=== PATIENT | female | born 1985 | race African-American/Black ===

== ENCOUNTER 2016-05-31 23:52 | Emergency (ER) | payer OTHER ==
[2016-06-01 00:44] VITALS: BMI 42.3
[2016-06-01] MEDS ORDERED: SODIUM CHLORIDE 1,000 ML IV STA (00:56)
[2016-06-01] MEDS ORDERED: FAMOTIDINE 20 MG/50 ML IVPB 50 ML IVPB ONE ×2 (00:56→03:29)
[2016-06-01] MEDS ORDERED: ONDANSETRON 4 MG/2 ML VIAL IVPB ONE (00:56)
[2016-06-01] MEDS ORDERED: morphine CARPU-JECT 4 MG/1 ML DISP.SYRIN IVPUSH ONE (00:56)
--- NOTE | 2016-06-01 01:24 | PDOC ---
History of Present Illness - General History Source: Patient Exam Limitations: No Limitations <Fidel Orozco - Last Filed: 06/01/16 01:51> - General History Source: Patient Exam Limitations: No Limitations - History of Present Illness Initial Comments: 06/01/16 01:57 The patient is a 31 year old female, with no significant past medical history, who presents to the emergency department with two main complaints. The patient reports that yesterday morning, she fell, landed on her right buttocks, twisting her left ankle in the process. The patient reports taking Ibuprofen for pain. The patient denies any extremity weakness/numbness/tingling however she does reports pain with ambulation. The patient additionally reports nausea, vomiting and vague diffuse abdominal pain since approximately 7PM yesterday evening. The patient denies fever, chills diarrhea or any recent illnesses. LMP : currently. Allergies: None reported. Past Surgical History: None reported. Social History: Non smoker. Denies alcohol or drug use. PCP: Dr. Thomson <Marya Albrecht - Last Filed: 06/01/16 02:00> <Calli Arellano - Last Filed: 06/03/16 05:40> - General Chief Complaint: Pain Stated Complaint: NAUSEA/VOMITING Time Seen by Provider: 06/01/16 00:41 Past History - Psycho/Social/Smoking Cessation Hx Anxiety: No Suicidal Ideation: No Smoking Status: No Smoking History: Never smoked Have you smoked in the past 12 months: No Number of Cigarettes Smoked Daily: 0 Information on smoking cessation initiated: No Hx Alcohol Use: No Drug/Substance Use Hx: No <Fidel Orozco - Last Filed: 06/01/16 01:51> <Marya Albrecht - Last Filed: 06/01/16 02:00> <Calli Arellano - Last Filed: 06/03/16 05:40> - Past Medical History Allergies/Adverse Reactions: Allergies Allergy/AdvReac Type Severity Reaction Status Date / Time No Known Allergies Allergy Verified 06/01/16 00:42 Home Medications: Ambulatory Orders Ondansetron [Zofran -] 4 mg PO TID PRN #21 tablet 06/01/16 Review of Systems - Review of Systems Able to Perform ROS?: Yes Comments:: 06/01/16 01:31 GENERAL/CONSTITUTIONAL: No fever or chills. No weakness. HEAD, EYES, EARS, NOSE AND THROAT: No change in vision. No ear pain or discharge. No sore throat. CARDIOVASCULAR: No chest pain or shortness of breath. RESPIRATORY: No cough, wheezing, or hemoptysis. GASTROINTESTINAL: +Nausea, vomiting, abdominal pain. No diarrhea or constipation. GENITOURINARY: No dysuria, frequency, or change in urination. MUSCULOSKELETAL: +Left ankle pain, right buttocks pain. No muscle swelling or pain. No neck or back pain. SKIN: No rash. NEUROLOGIC: No headache, vertigo, loss of consciousness, or change in strength/ sensation. ENDOCRINE: No increased thirst. No abnormal weight change. HEMATOLOGIC/LYMPHATIC: No anemia, easy bleeding, or history of blood clots. ALLERGIC/IMMUNOLOGIC: No hives or skin allergy. <Marya Albrecht - Last Filed: 06/01/16 02:00> *Physical Exam - Vital Signs Last Vital Signs Temp Pulse Resp BP Pulse Ox 98.9 F 125 H 22 139/79 99 06/01/16 00:42 06/01/16 00:42 06/01/16 00:42 06/01/16 00:42 06/01/16 00:42 <Fidel Orozco - Last Filed: 06/01/16 01:51> - Vital Signs Last Vital Signs Temp Pulse Resp BP Pulse Ox 98.9 F 125 H 22 139/79 99 06/01/16 00:42 06/01/16 00:42 06/01/16 00:42 06/01/16 00:42 06/01/16 00:42 - Physical Exam Comments: 06/01/16 01:54 GENERAL: Obese. Patient is awake, alert and in no acute distress. Speech is clear and appropriate. HEAD: Atraumatic and nontender. HEENT: Pupils are equal round and reactive to light, extraocular movements are intact. The tympanic membranes are clear, no hemotympanum. No facial deformity. No facial bone tenderness or step-off. No nasal septal hematoma. The oropharynx is clear. NECK: The trachea is midline, there is no stridor. There is no midline cervical spine tenderness, full range of motion of neck. CHEST: Non-tender, no ecchymosis or abrasions. Equal chest wall expansion bilaterally. No flail segments. Lungs are clear to auscultation bilaterally. CARDIOVASCULAR: S1-S2, regular rate and rhythm. No murmurs or rubs. ABDOMEN: Diffuse abdominal tenderness. Soft, nondistended. Bowel sounds are normoactive. There is no abdominal or flank ecchymosis. BACK/PELVIS: Tenderness to the right buttocks. There is no midline thoracic or lumbosacral spine tenderness or step-off. Pelvis is stable and nontender. EXTREMITIES: Left ankle, 2+ DP pulse. No swelling or ecchymoses. No tenderness to navicular bone, no tenderness to the 5th metatarsal. Tenderness along lateral malleolus There is no extremity deformity or joint swelling. 2+ distal pulses throughout. NEURO: Alert and oriented x3. Cranial nerves II through XII are intact. 5 out of 5 motor strength x4 extremities. No gross sensory deficits. Finger-nose- finger is intact. No pronator drift. Gait is stable. SKIN: No abrasions, hematomas, lacerations. PSYCH: Affect is appropriate. <WindsorMarya goodson - Last Filed: 06/01/16 02:00> - Vital Signs Last Vital Signs Temp Pulse Resp BP Pulse Ox 98.9 F 125 H 22 139/79 99 06/01/16 00:42 06/01/16 00:42 06/01/16 00:42 06/01/16 00:42 06/01/16 00:42 <Calli Arellano - Last Filed: 06/03/16 05:40> ED Treatment Course - RADIOLOGY Radiology Studies Ordered: Category Date Time Status ABDOMEN & PELVIS CT WITH CONTR [CT] Stat CT Scan 06/01/16 01:03 Ordered ANKLE-LEFT [RAD] Stat Radiology 06/01/16 01:02 Ordered TRANSVAGINAL ULTRASOUND US [US] Stat Ultrasound 06/01/16 00:56 Ordered <Fidel Orozco - Last Filed: 06/01/16 01:51> - LABORATORY CBC & Chemistry Diagram: 06/01/16 03:25 06/01/16 03:25 <Calli Arellano - Last Filed: 06/03/16 05:40> Medical Decision Making - Medical Decision Making 06/01/16 01:16 A portion of this note was documented by scribe services under my direction. I have reviewed the details of the note, within reason, and agree with the documentation with the following case summary and management plan written by me. Patient treated in the ED. Nursing notes are reviewed and incorporated into the medical decision-making. Vital signs reviewed. Peripheral IV access obtained by the nurse, laboratory studies are drawn and sent, reviewed and interpreted by myself. Vital Signs Temp Pulse Resp BP Pulse Ox 98.9 F 125 H 22 139/79 99 06/01/16 00:42 06/01/16 00:42 06/01/16 00:42 06/01/16 00:42 06/01/16 00:42 31 year old obese female with no past medical history presents with two complaints. This morning, the patient had twisted her left ankle. Denies numbness, weakness. Reports pain on ambulation. Stated when she fell, landed on right buttocks, and now has right buttocks pain. Will obtain a left ankle xray to r/o fracture. If negative, likely sprain. Pt also complains of generalized abdominal pain that started at 7 pm. She is also currently on her menstrual period. Has had nausea and vomiting and poor appetite. Denies fevers. Will need to r/o appendicitis. However, given her obesity and ?hirsuit, will need to r/o ovarian cyst rupture. Transvaginal ultrasound. Obtain labs, CT scan of abdomen and pelvis, transvaginal ultrasound , and reassess. 06/01/16 01:51 Case signed out to ED attending Dr. Arellano for further management and disposition. <Fidel Orozco - Last Filed: 06/01/16 01:51> - Medical Decision Making 06/01/16 03:08 Patient Name: Padmini Medina THIS IS A PRELIMINARY REPORT FROM [facility]: 27 EXAM DATE AND TIME: 2016-06-01 01:02:52.0 EXAM: ULTRASOUND PELVIS, COMPLETE AND DUPLEX SCAN PELVIS, COMPLETE No ovarian torsion. arterial and venous waveforms right ovary and arterial waveforms on the left. No free fluid. Normal uterus. Endometrial stripe complex 9 mm thick. Unremarkable visualized portion of bladder. THIS DOCUMENT HAS BEEN ELECTRONICALLY SIGNED 06/01/16 06:56 Pt comes with nausea and vomiting as well as fall and twisting ankle. She was signed out to me. Labs are normal. UA normal. Sono had been ordered to r/o torsion; she has no torsion. XR ankle had been ordered and is pending CT scan abdomen and pelvis had been ordered and is pending I will sign out patient to the day ER doctor who will follow ankle XR and CT scan results and disposition the patient. <Calli Arellano - Last Filed: 06/03/16 05:40> *DC/Admit/Observation/Transfer <Fidel Orozco - Last Filed: 06/01/16 01:51> - Attestations Scribe Attestion: 06/01/16 01:25 Documentation prepared by Marya Albrecht, acting as medical insurance biller for Fidel Orozco MD. <Marya Albrecht - Last Filed: 06/01/16 02:00> <Calli Arellano - Last Filed: 06/03/16 05:40> Diagnosis at time of Disposition: Nausea and vomiting, Ankle sprain - Discharge Dispostion Disposition: HOME Condition at time of disposition: Stable - Prescriptions Prescriptions: Ondansetron [Zofran -] 4 mg PO TID PRN #21 tablet PRN Reason: Nausea And/Or Vomiting - Referrals Referrals: Ramírez Thomson [Primary Care Provider] - - Patient Instructions Printed Discharge Instructions: DI for Ankle Sprain, DI for Vomiting -- Adult
[2016-06-01] MEDS ORDERED: morphine CARPU-JECT 4 MG/1 ML DISP.SYRIN ONE (03:28)
[2016-06-01] MEDS ORDERED: ONDANSETRON 4 MG/2 ML VIAL ONE (03:28)
[2016-06-01 03:38] LABS: BASOPHIL 0.4 % (0-2.0); EOSINOPHIL 0.3 % (0-4.5); MCH 26.8 pg (25.7-33.7); MCHC 33.1 g/dl (32.0-36.0); MEAN CELL VOLUME 81.1 fl (80-96); MEAN PLT VOLUME 8.1 fl (7.5-11.1); NEUTROPHILS 91.1 % (42.8-82.8); PLATELET COUNT 303 K/MM3 (134-434); RDW 14.4 % (11.6-15.6)
[2016-06-01 04:01] LABS: ALBUMIN 3.7 g/dl (3.4-5.0); ANION GAP 12 (8-16); CALCIUM 8.5 mg/dL (8.5-10.1); CO2 26 mmol/L (21-32); CREATININE 0.8 mg/dL (0.55-1.02); GLUCOSE,RANDOM 98 mg/dL (74-106); SGOT/AST 15 U/L (15-37); SGPT/ALT 30 U/L (12-78)
[2016-06-01 04:03] LABS: ALK PHOS 55 U/L (45-117); BILIRUBIN,TOTAL 0.5 mg/dL (0.2-1.0); TOT PROT 7.3 g/dl (6.4-8.2)
[2016-06-01 06:21] LABS: URINE APPEARANCE CLEAR; URINE BILIRUBIN NEGATIVE (NEGATIVE); URINE COLOR LTYELLOW; URINE GLUCOSE (UA) NEGATIVE (NEGATIVE); URINE KETONE NEGATIVE (NEGATIVE); URINE LEUK ESTERASE NEGATIVE (NEGATIVE); URINE NITRITE NEGATIVE (NEGATIVE); URINE UROBILINOGEN NEGATIVE E.U./dl (0.2-1.0)
[2016-06-01 06:33] LABS: URINE BLOOD 1+ (NEGATIVE); URINE PROTEIN 1+ (NEGATIVE)
[2016-06-01 06:40] LABS: URINE MUCUS RARE; URINE RBC 1 /hpf (0-3); URINE WBC 1 /hpf (3-5)
[2016-06-01] MEDS ORDERED: SODIUM CHLORIDE 0.9% 500 ML INFUS.BAG IV ONE (07:00)
--- NOTE | 2016-06-01 07:27 | PDOC ---
[id number] 148/76 100 06/01/16 06:33 06/01/16 06:33 06/01/16 06:33 06/01/16 06:33 06/01/16 06:33 ED Treatment Course - LABORATORY CBC & Chemistry Diagram: 06/01/16 03:25 06/01/16 03:25 - ADDITIONAL ORDERS Additional order review: Laboratory Results 06/01/16 06/01/16 03:25 03:25 Sodium 142 Potassium 3.9 Chloride 104 Carbon Dioxide 26 Anion Gap 12 BUN 9 Creatinine 0.8 Creat Clearance w eGFR > 60 Random Glucose 98 Calcium 8.5 Total Bilirubin 0.5 AST 15 ALT 30 Alkaline Phosphatase 55 Total Protein 7.3 Albumin 3.7 Lipase 113 Serum , Qual Negative Urine Color Ltyellow Urine Appearance Clear Urine pH 9.0 H Ur Specific [place] 1.023 Urine Protein 1+ H Urine Glucose (UA) Negative Urine Ketones Negative Urine Blood 1+ H Urine Nitrite Negative Urine Bilirubin Negative Urine Urobilinogen Negative Ur Leukocyte Esterase Negative Urine RBC 1 Urine WBC 1 Ur Epithelial Cells Rare Urine Mucus Rare 06/01/16 03:25 RBC 4.75 MCV 81.1 MCHC 33.1 RDW 14.4 MPV 8.1 Neutrophils % 91.1 H Lymphocytes % 4.8 L Monocytes % 3.4 L Eosinophils % 0.3 Basophils % 0.4 - Medications Given in the ED: ED Medications Discontinued Medications Generic Name Dose Route Start Last Admin Trade Name Freq PRN Reason Stop Dose Admin Famotidine/Sodium Chloride 50 mls @ 100 mls/hr 06/01/16 00:56 06/01/16 03:41 Pepcid 20 Mg Premixed Ivpb - IVPB 06/01/16 01:25 100 mls/hr ONCE ONE Administration Sodium Chloride 1,000 mls @ 1,000 mls/hr 06/01/16 00:56 06/01/16 03:41 Normal Saline - IV 06/01/16 01:55 1,000 mls/hr ASDIR STA Administration Morphine Sulfate 4 mg 06/01/16 00:56 06/01/16 03:41 Morphine Injection - IVPUSH 06/01/16 00:57 4 mg ONCE ONE Administration Ondansetron HCl 4 mg 06/01/16 00:56 06/01/16 03:42 Zofran Injection IVPB 06/01/16 00:57 4 mg ONCE ONE Administration Medical Decision Making - Medical Decision Making 06/01/16 07:27 Pt endorsed to me by Dr. Arellano. Awaiting ankle XR, CT a/p. 06/01/16 10:38 Abd reassessed- nontender, no signs of acute abdomen. Pt given a PO challenge. *DC/Admit/Observation/Transfer Diagnosis at time of Disposition: Nausea and vomiting Qualifiers: Vomiting type: unspecified Vomiting Intractability: non-intractable Qualified Code(s): R11.2 - Nausea with vomiting, unspecified Ankle sprain Qualifiers: Encounter type: initial encounter Involved ligament of ankle: unspecified ligament Laterality: left Qualified Code(s): S93.402A - Sprain of unspecified ligament of left ankle, initial encounter - Discharge Dispostion Disposition: HOME Condition at time of disposition: Stable Admit: No - Prescriptions Prescriptions: Ondansetron [Zofran -] 4 mg PO TID PRN #21 tablet PRN Reason: Nausea And/Or Vomiting - Referrals Referrals: Ramírez Thomson [Primary Care Provider] - - Patient Instructions Printed Discharge Instructions: DI for Ankle Sprain, DI for Vomiting -- Adult - Post Discharge Activity
[2016-06-01 11:06] VITALS: BP 110/66; PULSE 89; TEMP 97.6
== END 2016-06-01 11:06 | disposition home or self-care (01) ==
LOC: JER 23:52
PROC: 3E033GC Introduction of Other Therapeutic Substance into Peripheral Vein, Percutaneous Approach (ICD-10-PCS; principal; 2016-05-31)
PROC: 3E033NZ Introduction of Analgesics, Hypnotics, Sedatives into Peripheral Vein, Percutaneous Approach (ICD-10-PCS; 2016-05-31)
PROC: 3E033GC Introduction of Other Therapeutic Substance into Peripheral Vein, Percutaneous Approach (ICD-10-PCS; 2016-05-31)
DX: R11.2 Nausea with vomiting, unspecified (principal); S93.402A Sprain of unspecified ligament of left ankle, initial encounter; W19.XXXA Unspecified fall, initial encounter; Y93.89 Activity, other specified; Y92.89 Other specified places as the place of occurrence of the external cause
CPT/HCPCS: 36415; 73610-TC-LT; 74177-TC; 76856-TC; 80053; 81003; 81015; 83690; 84703; 85025; 87086; 96365; 96375; 99283-25

== ENCOUNTER 2017-01-07 12:30 | Emergency (ER) | payer OTHER ==
[2017-01-07 12:43] VITALS: BP 127/77; PULSE 90; TEMP 98; BMI 42.3
--- NOTE | 2017-01-07 14:51 | PDOC ---
History of Present Illness - General Chief Complaint: Abscess Boil Stated Complaint: WOUND ON ABDOMEN Time Seen by Provider: 01/07/17 14:04 History Source: Patient Exam Limitations: No Limitations - History of Present Illness Initial Comments: 01/07/17 14:56 31 yr female with c/o boil to her abdomen for 2 weeks no drainage now, had drainage last week . Pt states she had "lump" to the abdomen for years. no fever no chills . 01/07/17 22:46 Past History - Past Medical History Allergies/Adverse Reactions: Allergies Allergy/AdvReac Type Severity Reaction Status Date / Time No Known Allergies Allergy Verified 01/07/17 12:38 Home Medications: Ambulatory Orders Ondansetron [Zofran -] 4 mg PO TID PRN #21 tablet 06/01/16 Mupirocin Ointment [Bactroban] 1 applic TP BID #1 tube 01/07/17 COPD: No - Immunization History Immunization Up to Date: Yes - Suicide/Smoking/Psychosocial Hx Smoking Status: No Smoking History: Never smoked Have you smoked in the past 12 months: No Number of Cigarettes Smoked Daily: 0 Information on smoking cessation initiated: No Hx Alcohol Use: No Drug/Substance Use Hx: No Substance Use Type: None *Physical Exam - Vital Signs Last Vital Signs Temp Pulse Resp BP Pulse Ox 98.0 F 90 17 127/77 99 01/07/17 12:40 01/07/17 12:40 01/07/17 12:40 01/07/17 12:40 01/07/17 12:40 - Physical Exam General Appearance: Yes: Nourished, Appropriately Dressed HEENT: positive: EOMI, DARRYL Neck: positive: Supple Respiratory/Chest: positive: Lungs Clear, Normal Breath Sounds Cardiovascular: positive: Regular Rhythm, Regular Rate Integumentary: positive: Normal Color, Dry, Warm, Other (right lower abdomen with 1cm scabbed area soft, macular no redness no drainage , mild induration) Neurologic: positive: Normal Response, Motor Strength 5/5 Medical Decision Making - Medical Decision Making 01/07/17 22:48 cc: abscess to the abdomen that had drained last week is dried up now no redness or swelling no fever, scabbed area dry will prescribe bactoban ointment pt has history r of "boils" to groin and axila in the past *DC/Admit/Observation/Transfer Diagnosis at time of Disposition: Boil - Discharge Dispostion Disposition: HOME Condition at time of disposition: Good - Prescriptions Prescriptions: Mupirocin Ointment [Bactroban] 1 applic TP BID #1 tube - Referrals Referrals: Trevor Perdue MD [Staff Physician] - - Patient Instructions Additional Instructions: follow with the general surgeon for follow up use bactroban ointment twice a day for 3 days use antibacterial soap and water twice a day warm compresses every few hours for 20 minutes to help soften the area follow with the general surgeon for follow up - Post Discharge Activity
== END 2017-01-07 14:58 | disposition home or self-care (01) ==
LOC: JERFT 12:30
DX: L02.221 Furuncle of abdominal wall (principal)
CPT/HCPCS: 99281-25

== ENCOUNTER 2017-01-13 23:10 | Emergency (ER) | payer OTHER ==
[2017-01-13 23:25] VITALS: BP 123/77; PULSE 105; TEMP 98.1; BMI 42.3
--- NOTE | 2017-01-14 00:02 | PDOC ---
History of Present Illness - General Chief Complaint: Ear Problem Stated Complaint: EAR PROBLEM Time Seen by Provider: 01/13/17 23:27 History Source: Patient Exam Limitations: No Limitations - History of Present Illness Initial Comments: 01/14/17 00:08 31-year-old female with no medical history presents to the emergency department complaining of difficulty hearing in the right ear times approximately one week. Patient states she literally just left [facility] to come to this emergency department to get seen. Patient was told she has cerumen impaction and was given a prescription for Ciprodex. Patient denies headache, dizziness, lightheadedness, facial pains, sore throat, neck pain, back pains, chest pain, shortness of breath. Timing/Duration: 1 week Past History - Past Medical History Allergies/Adverse Reactions: Allergies Allergy/AdvReac Type Severity Reaction Status Date / Time No Known Allergies Allergy Verified 01/13/17 23:25 Home Medications: Ambulatory Orders Sertraline HCl [Zoloft -] 50 mg PO DAILY 01/13/17 COPD: No Other medical history: PCOS - Immunization History Immunization Up to Date: Yes - Suicide/Smoking/Psychosocial Hx Smoking Status: No Smoking History: Never smoked Have you smoked in the past 12 months: No Number of Cigarettes Smoked Daily: 0 Information on smoking cessation initiated: No Hx Alcohol Use: No Drug/Substance Use Hx: No Substance Use Type: None Review of Systems - Review of Systems Able to Perform ROS?: Yes Comments:: 01/13/17 23:59 CONSTITUTIONAL: Absent: fever, chills, diaphoresis, generalized weakness, malaise, loss of appetite HEENT: Right ear diff hearing Absent: rhinorrhea, nasal congestion, throat pain, throat swelling, difficulty swallowing, mouth swelling, ear pain, eye pain, visual Changes SKIN: Absent: rash, itching, pallor Is the patient limited [place] proficient: No *Physical Exam - Vital Signs Last Vital Signs Temp Pulse Resp BP Pulse Ox 98.1 F 105 H 18 123/77 100 01/13/17 23:22 01/13/17 23:22 01/13/17 23:22 01/13/17 23:22 01/13/17 23:22 - Physical Exam Comments: 01/14/17 00:00 GENERAL: Well developed, well nourished. Awake and alert. No acute distress. HEENT: Right cerumen impaction Normocephalic, atraumatic. PERRLA, EOMI. No conjunctival pallor. Sclera are non- icteric. Moist mucous membranes. Oropharynx is clear. NECK: Supple. Full ROM. No JVD. Carotid pulses 2+ and symmetric, without bruits. No thyromegaly. No lymphadenopathy. CARDIOVASCULAR: Regular rate and rhythm. No murmurs, rubs, or gallops. Distal pulses are 2+ and symmetric. PULMONARY: No evidence of respiratory distress. Lungs clear to auscultation bilaterally. No wheezing, rales or rhonchi. ABDOMINAL: Soft. Non-tender. Non-distended. No rebound or guarding. No organomegaly. Normoactive bowel sounds. MUSCULOSKELETAL Normal range of motion at all joints. No bony deformities or tenderness. No CVA tenderness. EXTREMITIES: No cyanosis. No clubbing. No edema. No calf tenderness. SKIN: Warm and dry. Normal capillary refill. No rashes. No jaundice. *DC/Admit/Observation/Transfer Diagnosis at time of Disposition: Right ear impacted cerumen - Discharge Dispostion Disposition: HOME Condition at time of disposition: Stable Admit: No - Referrals Referrals: Ramírez Thomson [Primary Care Provider] - Rickie Moreno MD [Staff Physician] - - Patient Instructions Printed Discharge Instructions: DI for Cerumen Impaction Additional Instructions: Follow up with the ENT physician as needed Return to the ER as needed - Post Discharge Activity Progress Note - Progress Note Progress Note: Right ear: Warm NS irrigation +success Right ear: TM neg bulging/dullness/erythema Canal: neg stenosis
== END 2017-01-14 00:38 | disposition home or self-care (01) ==
LOC: JERFT 23:10
DX: H61.21 Impacted cerumen, right ear (principal)
CPT/HCPCS: 99281-25

== ENCOUNTER 2017-05-29 14:30 | Emergency (ER) | payer OTHER ==
[2017-05-29 15:09] VITALS: BP 117/78; PULSE 84; TEMP 98.4; BMI 44.6
--- NOTE | 2017-05-29 15:14 | PDOC ---
Rapid Medical Evaluation Chief Complaint: Pain Time Seen by Provider: 05/29/17 15:07 Medical Evaluation: Allergies Allergy/AdvReac Type Severity Reaction Status Date / Time No Known Allergies Allergy Verified 05/29/17 15:09 Vital Signs Temp Pulse Resp BP Pulse Ox 98.4 F 84 18 117/78 99 05/29/17 15:04 05/29/17 15:04 05/29/17 15:04 05/29/17 15:04 05/29/17 15:04 05/29/17 15:14 I have performed a brief in-person evaluation of this patient. The patient presents with a chief complaint of: cloudy urine Pertinent physical exam findings: well appearing I have ordered the following: ua/ucx/upreg The patient will proceed to the ED for further evaluation. Discharge Disposition - Referrals Referrals: Ramírez Thomson [Primary Care Provider] - - Patient Instructions - Post Discharge Activity
--- NOTE | 2017-05-29 15:14 | PDOC ---
History of Present Illness - General Chief Complaint: Pain Stated Complaint: PELVIC PAIN Time Seen by Provider: 05/29/17 15:07 History Source: Patient Exam Limitations: No Limitations Past History - Past Medical History Allergies/Adverse Reactions: Allergies Allergy/AdvReac Type Severity Reaction Status Date / Time No Known Allergies Allergy Verified 05/29/17 15:09 Home Medications: Ambulatory Orders Sertraline HCl [Zoloft -] 50 mg PO DAILY 01/13/17 COPD: No - Immunization History Immunization Up to Date: Yes - Suicide/Smoking/Psychosocial Hx Smoking Status: No Smoking History: Never smoked Have you smoked in the past 12 months: No Number of Cigarettes Smoked Daily: 0 Hx Alcohol Use: No Drug/Substance Use Hx: No Substance Use Type: None *Physical Exam - Vital Signs Last Vital Signs Temp Pulse Resp BP Pulse Ox 98.4 F 84 18 117/78 99 05/29/17 15:04 05/29/17 15:04 05/29/17 15:04 05/29/17 15:04 05/29/17 15:04 *DC/Admit/Observation/Transfer - Referrals Referrals: Ramírez Thomsno [Primary Care Provider] - - Patient Instructions - Post Discharge Activity
[2017-05-29 15:36] LABS: URINE APPEARANCE CLEAR; URINE BILIRUBIN NEGATIVE (<2.0 mg/dL); URINE BLOOD NEGATIVE (NEGATIVE); URINE COLOR LTYELLOW; URINE GLUCOSE (UA) NEGATIVE (NEGATIVE); URINE KETONE NEGATIVE (NEGATIVE); URINE NITRITE NEGATIVE (NEGATIVE); URINE PROTEIN NEGATIVE (NEGATIVE); URINE UROBILINOGEN NEGATIVE mg/dL (0.2-1.0)
[2017-05-29 15:37] LABS: URINE LEUK ESTERASE 2+ (NEGATIVE)
[2017-05-29 15:43] LABS: EPI CELLS RARE /HPF (FEW); HCG,QUALITATIVE URINE NEGATIVE; URINE BACTERIA FEW /hpf (NONE SEEN); URINE HYALINE CAST 2 /lpf; URINE MUCUS RARE
--- NOTE | 2017-05-29 15:51 | PDOC ---
History of Present Illness - General Chief Complaint: Pain Stated Complaint: PELVIC PAIN Time Seen by Provider: 05/29/17 15:07 - History of Present Illness Initial Comments: 05/29/17 15:49 32 yo F with h/o morbid obesity who p/w pelvic pain. Pt. reports worsening pelvic pain x 3 weeks, with no identifiable alleviators. Pain is sharp, intermittent, crampy, and worse with erect sitting position. Not alleviated with OTC analgesia. Patient with h/o dysmennorhea with LMP (02/2016) lasting for 4 days. No breakthrough bleeding. Not on hormonal contraception. Reports acute dyspareurnia and recent vaginal bleeding with intercourse. Denies vaginal discharge, itching, burning, lesions. Denies F/C, N/V, CP, SOB, abdominal pain , diarrhea, constipation, urinary complaints, flank pain, weakness, lightheadedness, sensory changes. Pt. reports following with [employer] routinely ( not on staff). Reports h/o Last Pap smear 1 year ago was normal. Reports h/o Trichomoniasis ( 01/10), treated with antibiotics. Pt. is newly sexually active ( 02/2017) with one sexual partner, and routinely uses condom contraception. Has attempted OCPs in past. Recent negative STI screen. No prior pregnancies. Past History - Past Medical History Allergies/Adverse Reactions: Allergies Allergy/AdvReac Type Severity Reaction Status Date / Time No Known Allergies Allergy Verified 05/29/17 15:09 Home Medications: Ambulatory Orders NK [No Known Home Medication] 05/29/17 COPD: No - Reproductive History Is Patient Now?: No - Immunization History Immunization Up to Date: Yes - Suicide/Smoking/Psychosocial Hx Smoking Status: No Smoking History: Never smoked Have you smoked in the past 12 months: No Number of Cigarettes Smoked Daily: 0 Hx Alcohol Use: No Drug/Substance Use Hx: No Substance Use Type: None Review of Systems - Review of Systems Comments:: 05/29/17 15:47 GENERAL/CONSTITUTIONAL: No fever or chills. No weakness. HEAD, EYES, EARS, NOSE AND THROAT: No change in vision. No ear pain or discharge. No sore throat. CARDIOVASCULAR: No chest pain or shortness of breath RESPIRATORY: No cough, wheezing, or hemoptysis. GASTROINTESTINAL: No nausea, vomiting, diarrhea or constipation. GENITOURINARY: + Pelvic pain. No dysuria, frequency, or change in urination. MUSCULOSKELETAL: No joint or muscle swelling or pain. No neck or back pain. SKIN: No rash NEUROLOGIC: No headache, vertigo, loss of consciousness, or change in strength/ sensation. ENDOCRINE: No increased thirst. No abnormal weight change HEMATOLOGIC/LYMPHATIC: No anemia, easy bleeding, or history of blood clots. ALLERGIC/IMMUNOLOGIC: No hives or skin allergy. *Physical Exam - Vital Signs Last Vital Signs Temp Pulse Resp BP Pulse Ox 98.4 F 84 18 117/78 99 05/29/17 15:04 05/29/17 15:04 05/29/17 15:04 05/29/17 15:04 05/29/17 15:04 - Physical Exam Comments: 05/29/17 15:47 GENERAL: Awake, alert, and fully oriented, in no acute distress HEAD: No signs of trauma, normocephalic, atraumatic EYES: PERRLA, EOMI, sclera anicteric, conjunctiva clear ENT: Hearing grossly normal, nares patent, oropharynx clear without exudates. Moist mucosa NECK: Normal ROM, supple, no lymphadenopathy, JVD, or masses LUNGS: No distress, speaks full sentences, clear to auscultation bilaterally HEART: Regular rate and rhythm, normal S1 and S2, no murmurs, rubs or gallops, peripheral pulses normal and equal bilaterally. ABDOMEN: Soft, nontender, normoactive bowel sounds. No guarding, no rebound. No masses. Neg CVA ttp. : Normal appearing external genitalia. White discharge in vaginal vault. Cervical os closed. Neg CMT on BM. EXTREMITIES : Normal inspection, Normal range of motion, no edema. No clubbing or cyanosis. SKIN: Warm, Dry, normal turgor, no rashes or lesions noted ED Treatment Course - ADDITIONAL ORDERS Additional order review: Laboratory Results 05/29/17 15:25 Urine Color Ltyellow Urine Appearance Clear Urine pH 7.0 D Ur Specific [place] 1.021 Urine Protein Negative Urine Glucose (UA) Negative Urine Ketones Negative Urine Blood Negative Urine Nitrite Negative Urine Bilirubin Negative Urine Urobilinogen Negative Ur Leukocyte Esterase 2+ H Urine WBC (Auto) 5 Urine RBC (Auto) 1 Ur Epithelial Cells Rare Urine Bacteria Few Hyaline Casts 2 Urine Mucus Rare Urine HCG, Qual Negative Medical Decision Making - Medical Decision Making 05/29/17 15:51 32 yo F with h/o morbid obesity who p/w worsening sharp, intermittent, crampy, pelvic pain x 3 weeks, with no identifiable alleviator. Worse w/ erect posture. H/o dysmennorhea with LMP (02/2016) lasting for 4 days. + Dyspareurnia. Denies F/C, N/V, CP, SOB, abdominal pain, diarrhea, constipation, urinary complaints, vaginal discharge, itching, burning, lesions, flank pain, weakness, lightheadedness, sensory changes. Pt. reports following with [employer] routinely ( not on staff). Reports h/o Trichomoniasis ( 01/10), treated with antibiotics. Pt. is newly sexually active ( 02/2017) with one sexual partner, and routinely uses condom contraception. Not on hormonal contraception. Recent negative STI screen. No prior pregnancies. Physical exam with absent abdominal ttp and white vaginal discharge. HDS. Pt. arrives from E with UA and Urine preg ordered to r /o and cystitis. Deferential also includes PCOS, leiomyomata, endometriosis, ectopic , PID. ED Course: UA, Urine Cx., Urine Preg UA: 2 + Leuk Esterase, 5 + WBC GC AMP 05/29/17 18:10 Transvaginal U/S: Absent ovarian cyst or torsion. Small cyst at uterine endometrial-myometrial junction at lower uterine segment. Pt. stable for d/c with return precautions. Pt. advised to f/u with [facility] [employer] within one week. *DC/Admit/Observation/Transfer Diagnosis at time of Disposition: Pelvic pain, Adenomyosis - Discharge Dispostion Disposition: HOME Condition at time of disposition: Stable Admit: No - Referrals Referrals: Ramírez Thomson [Primary Care Provider] - Bhumi Braun MD [Staff Physician] - Chandler Antoine MD [Staff Physician] - - Patient Instructions Printed Discharge Instructions: DI for Pelvic Pain Additional Instructions: Please return to the emergency department with any new or worsening symptoms or concerns. Please follow up with your primary care physician within 72 hours. Please follow up with your [employer] physician within one week for follow up with transvaginal ultrasound results of adenomyosis. Can take Naproxen or Ibuprofen 600 mg every 6 hours as needed for pain. - Post Discharge Activity - Attestations Physician Attestion: 05/29/17 15:49 I attest to the information provided in this note.
--- NOTE | 2017-05-29 16:13 | PDOC ---
Attending Attestation - HPI HPI: 05/29/17 16:15 The patient is a 32 year old female(), with a significant past medical history of PCOS, who presents to the emergency department with pelvic pain for approximately 3 weeks. The patient reports her pain is sharp and nonradiating in nature. Patient states her pain is exacerbated with sexual intercourse or when sitting upright. Patient states she has a history of Trichomonas in December 2016, "but was not sexually active at the time." Patient reports her LMP was 02/2016, and lasted 4 days. Patient states since she became sexually active she has experienced vaginal bleeding, but has had no vaginal discharge, dysuria, hematuria, frequency, or urgency. Patient reports she uses condoms for intercourse regularly. Back in December of 2016, patient reports she was on OC's , which caused her to bleed intermittently for 2 months. Once the bleeding stopped, patient reports she stopped taking her OC's. Patient reports she had an STI screen in 12/2016, which was negative. Patient states her partner also had an STI screen, which was negative. She denies any nausea, vomiting, diarrhea , constipation, fever, or chills. - Physicial Exam PE: 05/29/17 17:01 Constitutional: Awake, alert, oriented. No acute distress. Head: Normocephalic. Atraumatic Eyes: PERRL. EOMI. Conjunctivae are not pale. ENT: Mucous membranes are moist and intact. Posterior pharynx without exudates or erythema. Uvula midline. Cardiovascular: Regular rate. Regular rhythm. S1, S2 regular. Distal pulses are 2+ and symmetric. Pulmonary/Chest: No evidence of respiratory distress. Clear to auscultation bilaterally No wheezing, rales or rhonchi. Abdominal: Mild suprapubic tenderness to palpation, but no guarding or rebound. Soft and non-distended. No organomegaly. No palpable masses. Good bowel sounds. Genitourinary: Moderate amount of white discharge in vaginal vault. No cervical motion tenderness. No adnexal tenderness. Cervical os is closed Back: No CVA tenderness. Musculoskeletal: No edema. No cyanosis. No clubbing. Full range of motion in all extremities. No calf tenderness. Radial/pedal pulses are intact and 2+ bilaterally Skin: Skin is warm and dry. No petechiae. No purpura. Neurological: Alert and oriented to person, place, and time. Cranial nerves II -XII are grossly intact. Normal speech. Strength is grossly symmetric. No sensory deficits. - Medical Decision Making 05/29/17 16:20 Documentation prepared by Harmeet Lenz, acting as medical record transcriber for Suni Wilder DO. <Harmeet Lenz - Last Filed: 05/29/17 17:01> - Resident Resident Name: Spencer Payne - ED Attending Attestation I have performed the following: I have examined & evaluated the patient, The case was reviewed & discussed with the resident, I agree w/resident's findings & plan, Exceptions are as noted - Medical Decision Making 05/29/17 16:13 I, Dr. Suni Wilder DO, attest that this document has been prepared under my direction and personally reviewed by me in its entirety. I further attest, that it accurately reflects all work, treatment, procedures and medical decision -making performed by me. 05/29/17 16:54 a/p: 32yo female with pelvic pain -pt is sexually active -no menstrual cycle in 16 months -last OB.[facility]PART[facility] clinic eval was dec 2016 -was taking control (for abnl hormone levels), but stopped after 4 months -has not scheduled follow up -moderate amount of discharge - has had negative testing for stds -requesting re-testing today -will obtain ultrasound and ua/ucg -will monitor and reassess 05/29/17 18:13 ultrasound shows small cysts and adenomyosis resident discussed imaging results with the patient gave patient her ultrasound results discussed follow up with her [employer] BUSINESS INTELLIGENCE CONSULTANT pt stable for d/c to home <Suni Wilder - Last Filed: 05/29/17 18:14>
[2017-05-29] MEDS ORDERED: NAPROXEN 375 MG TABLET (FP) PO ONE (16:23)
[2017-05-29] MEDS ORDERED: NAPROXEN 500 MG TABLET (FP) ONE (16:38)
[2017-05-29] MEDS ORDERED: NAPROXEN 500 MG TABLET (FP) PO ONE (16:39)
== END 2017-05-29 18:20 | disposition home or self-care (01) ==
LOC: JER 14:30
DX: N80.0 Endometriosis of uterus (principal); E28.2 Polycystic ovarian syndrome; E66.01 Morbid (severe) obesity due to excess calories; Z68.41 Body mass index [BMI] 40.0-44.9, adult
CPT/HCPCS: 36415; 76830-TC; 81003; 81015; 84703; 87086; 87491; 87591; 99282-25

== ENCOUNTER 2018-01-11 11:22 | Emergency (ER) | payer OTHER ==
[2018-01-11 11:32] VITALS: BMI 42.9
--- NOTE | 2018-01-11 11:55 | PDOC ---
History of Present Illness - General Chief Complaint: Pain Stated Complaint: PELVIC PAIN Time Seen by Provider: 01/11/18 11:55 - History of Present Illness Initial Comments: Padmini Medina is a 32yo woman with a PMH of obesity, PCOS, endometriosis, and asthma who presents reporting worsening suprapubic discomfort, dysuria and urinary urgency for several days along with hematuria today. She reports that she saw her mining machinery assembler on Friday and had a urine test at that time that was negative for UTI. However, she was taking azithromycin at the time for a URI, and her mining machinery assembler told her that it might be "masking" an infection. She completed her azithromycin prescription 2.5 days ago, and her urinary symptoms have been worsening since that time. She says that she has suprapubic pain and burning pain when she urinates. She also reports a feeling of incomplete emptying and the need to urinate again immediately after voiding. Her urine has appeared cloudy for several days, and today she had some hematuria. Ms Medina reports that her LMP was at the end of September and she has been sexually active, but she does not believe that she is . Her periods are usually very irregular. She has not noticed any unusual vaginal discharge or bleeding. She did previously have a bacterial vaginal infection and has no similar symptoms. She denies any back or flank pain, fevers/chills, nausea, vomiting, or change in bowel habits. Past History - Past Medical History Allergies/Adverse Reactions: Allergies Allergy/AdvReac Type Severity Reaction Status Date / Time No Known Allergies Allergy Verified 01/11/18 11:32 Home Medications: Ambulatory Orders Fluconazole 150 mg PO ONCE #1 tablet 01/11/18 Sulfamethoxazole/Trimethoprim [Bactrim Ds -] 1 tab PO BID #6 tablet 01/11/18 Anemia: Yes COPD: No - Immunization History Immunization Up to Date: Yes - Suicide/Smoking/Psychosocial Hx Smoking Status: No Smoking History: Never smoked Have you smoked in the past 12 months: No Number of Cigarettes Smoked Daily: 0 Hx Alcohol Use: No Drug/Substance Use Hx: No Substance Use Type: None Review of Systems - Review of Systems Comments:: General: No fevers, no chills, no weight or appetite change, no malaise HEENT: No changes in vision, no changes in hearing, no congestion, no sore throat CV: No chest pain, no palpitations, no LE edema Pulm: No SOB, no cough, no wheezing GI: No nausea or vomiting, no change in bowel habits, no melena : +hematuria, +urgency, +dysuria, +suprapubic pain Musc: No back pain, no joint swelling, no recent injury Skin: No rash, no lesions, no erythema Endo: No excessive thirst, no heat/cold intolerance Heme: No unusual bruising or bleeding, no swollen glands Neuro: No syncope, no numbness/tingling, no focal weakness Vasc: No claudication Psych: No recent change in mood, no SI or HI *Physical Exam - Vital Signs Last Vital Signs Temp Pulse Resp BP Pulse Ox 98.4 F 73 18 123/61 97 01/11/18 11:28 01/11/18 11:28 01/11/18 11:28 01/11/18 11:28 01/11/18 11:28 - Physical Exam Comments: General: Comfortable, no acute distress, obese HEENT: PERRL, EOMI, MMM, voice normal, normal neck ROM Cards: RRR, no murmur appreciated Pulm: Comfortable on room air, clear to auscultation bilaterally Abd: Soft, nontender, nondistended : Mild suprapubic discomfort. No CVA tenderness. Normal external genitalia, no blood or lesions. Thick white discharge in vaginal canal. No cervical motion tenderness. No bleeding, no lesions. Ext: Atraumatic. No LE edema. ROM intact. Strength 5/5 and equal bilaterally Vasc: Extremities WWP. Palpable radial and pedal pulses bilaterally Skin: Normal color, no rashes or lesions Neuro: A&Ox3, CN grossly intact, normal speech, motor/sensory grossly intact and symmetric Psych: Mood appropriate to situation Medical Decision Making - Medical Decision Making 01/11/18 12:07 Attempted to see patient. Not present in the assigned room. 01/11/18 12:41 Padmini Medina is a 32yo woman with a PMH of morbid obesity, PCOS, endometriosis, and mild asthma who presents with suprapubic discomfort, hematuria, urinary urgency, and dysuria for several days. - Previous UA on ay negative, but pt reports taking azithromycin at the time. She has now been off all antibiotics for 2.5 days and reports worsening of symptoms - Given symptoms suspect cystitis. UA, UCx, and urine preg ordered - Thick white-yellow discharge on vaginal exam. Urine gonorrhea, chlamydia, and trichomonas ordered - No labs at this time as Ms Medina has no symptoms concerning for systemic infection or pyelonephritis 01/11/18 13:24 - UA with 3+ blood, 2+ leuk esterase, 24 WBC, 142 RBC, rare yeast - test negative - STD testing pending, will not receive results today - Will prescribe bactrim for cystitis. Fluconazole to be given in ED today with one extra dose prescribed for continued symptoms after 3 days - Discussed with Ms Medina. She agrees and understands with the plan. - Glucose fingerstick to r/o undiagnosed diabetes. Seen and discussed with Dr Maxwell. Keya Montoya PGY1 *DC/Admit/Observation/Transfer Diagnosis at time of Disposition: UTI (urinary tract infection), Yeast infection of the vagina - Discharge Dispostion Disposition: HOME Decision to Admit order: No - Prescriptions Prescriptions: Fluconazole 150 mg PO ONCE #1 tablet Sulfamethoxazole/Trimethoprim [Bactrim Ds -] 1 tab PO BID #6 tablet - Referrals Referrals: Ramírez Thomson [Primary Care Provider] - - Patient Instructions Printed Discharge Instructions: DI for Urinary Tract Infection (UTI), DI for Vaginal Yeast Infection Additional Instructions: Discharge Instructions You were seen in the ED for pain with urination, and you were diagnosed with a urinary tract infection (UTI). You were also found to have a yeast infection. You additionally had tests for gonorrhea, chlamydia, and trichomonas. These results will not be back for several days, but you will be called if they are positive and need to be treated. You have been prescribed an antibiotic called Bactrim. This should be taken twice per day for three days. Please complete the entire prescription, even if your symptoms improve. You were given a dose of an antifungal medication for the yeast infection. If your symptoms do not resolve by 01/14/18, you have been prescribed one additional antifungal pill (fluconazole) that can be taken at home. Please see your regular doctor within the next 2-3 days for follow up. You may also want to schedule an appointment with your assistant producer to check that the yeast infection has completely resolved. Seek immediate medical care if you start to have fevers and shivering, worsening blood in your urine, and back or side pain. Also seek care at the nearest ED if you have any medical emergency. - Post Discharge Activity
[2018-01-11 12:43] LABS: URINE APPEARANCE SLCLOUDY; URINE BILIRUBIN NEGATIVE (<2.0 mg/dL); URINE COLOR LTYELLOW; URINE GLUCOSE (UA) NEGATIVE (NEGATIVE); URINE KETONE NEGATIVE (NEGATIVE); URINE LEUK ESTERASE 2+ (NEGATIVE); URINE NITRITE NEGATIVE (NEGATIVE); URINE PROTEIN NEGATIVE (NEGATIVE); URINE UROBILINOGEN NEGATIVE mg/dL (0.2-1.0)
[2018-01-11 12:51] LABS: URINE MUCUS RARE; YEAST RARE
[2018-01-11 12:53] LABS: HCG,QUALITATIVE URINE NEGATIVE
--- NOTE | 2018-01-11 13:01 | PDOC ---
Attending Attestation - Resident Resident Name: AlfonsoaaliyahKeya - ED Attending Attestation I have performed the following: I have examined & evaluated the patient, The case was reviewed & discussed with the resident, I agree w/resident's findings & plan, Exceptions are as noted - HPI HPI: 32 yo F history obesity, PCOD, endometriosis, asthma presents with suprapubic discomfort, dysuria, urinary urgency. +Thick white discharge. Denies fever, chills, vag bleeding. She recent took a z-pack for URI, now developing these symptoms. - Physicial Exam PE: GENERAL: Awake, alert, and fully oriented, in no acute distress HEAD: No signs of trauma EYES: PERRLA, EOMI, sclera anicteric, conjunctiva clear ENT: Auricles normal inspection, hearing grossly normal, nares patent, oropharynx clear without exudates. Moist mucosa NECK: Normal ROM, supple, no lymphadenopathy, JVD, or masses LUNGS: Breath sounds equal, clear to auscultation bilaterally. No wheezes, and no crackles HEART: Regular rate and rhythm, normal S1 and S2, no murmurs, rubs or gallops ABDOMEN: Soft, +suprapubic tenderness, normoactive bowel sounds. No guarding, no rebound. No masses EXTREMITIES: Normal range of motion, no edema. No clubbing or cyanosis. No cords, erythema, or tenderness NEUROLOGICAL: Cranial nerves II through XII grossly intact. Normal speech, normal gait SKIN: Warm, Dry, normal turgor, no rashes or lesions noted. - Medical Decision Making Pt with suprapubic discomfort, vag discharge. Exam suspicious for yeast infection (likely related to recent azithro). Will give diflucan. Abx for UTI.
[2018-01-11] MEDS ORDERED: FLUCONAZOLE 150 MG TABLET PO ONE (13:12)
[2018-01-11] MEDS ORDERED: FLUCONAZOLE 100 MG TABLET (UD) ONE (13:16)
[2018-01-11 13:49] VITALS: BP 120/64; PULSE 79; TEMP 98.1
== END 2018-01-11 13:47 | disposition home or self-care (01) ==
LOC: JER 11:22
DX: N39.0 Urinary tract infection, site not specified (principal); B37.3 Candidiasis of vulva and vagina; E28.2 Polycystic ovarian syndrome; Z87.09 Personal history of other diseases of the respiratory system; E66.9 Obesity, unspecified; Z68.41 Body mass index [BMI] 40.0-44.9, adult; Z87.42 Personal history of other diseases of the female genital tract
CPT/HCPCS: 36415; 81003; 81015; 82962; 84703; 87086; 87186; 87491; 87591; 87661; 99283-25

== ENCOUNTER 2018-06-27 18:34 | Emergency (ER) | payer OTHER ==
[2018-06-27 18:47] VITALS: TEMP 98.4; BMI 42.7
--- NOTE | 2018-06-27 19:09 | PDOC ---
History of Present Illness - General Chief Complaint: Eye Problem Stated Complaint: LT EYE PAIN Time Seen by Provider: 06/27/18 18:47 History Source: Patient Exam Limitations: No Limitations - History of Present Illness Initial Comments: 06/27/18 19:04 33 year old female with no significant medical or surgical history present with swelling of left lower eyelid since this am. Patient states slightly itching. Denies blurred vision or pain. Used otc eye drops with no relief of symptoms. Past History - Travel Traveled outside of the country in the last 30 days: No Close contact w/someone who was outside of country & ill: No - Past Medical History Allergies/Adverse Reactions: Allergies Allergy/AdvReac Type Severity Reaction Status Date / Time No Known Allergies Allergy Verified 01/11/18 11:32 Home Medications: Ambulatory Orders Ciclopirox Olamine [Loprox] 90 gm TP BID #30 gm 06/27/18 Erythromycin 0.5% Eye Ointment [Erythromycin 0.5% Eye Ointment -] 1 applic OS TID #1 tube 06/27/18 Sertraline HCl [Zoloft] 100 mg PO DAILY 06/27/18 Anemia: Yes COPD: No - Immunization History Immunization Up to Date: Yes - Suicide/Smoking/Psychosocial Hx Smoking Status: No Smoking History: Never smoked Have you smoked in the past 12 months: No Number of Cigarettes Smoked Daily: 0 Hx Alcohol Use: No Drug/Substance Use Hx: No Substance Use Type: None Review of Systems - Review of Systems Able to Perform ROS?: Yes Is the patient limited Senegalese proficient: No Constitutional: No: Chills, Fever, Loss of Appetite, Malaise HEENTM: Yes: Other (eye swelling). No: Nose Pain, Nose Congestion, Throat Swelling Respiratory: No: Orthopnea, Shortness of Breath, Wheezing Cardiac (ROS): No: Edema, Palpitations ABD/GI: No: Poor Appetite, Vomiting : No: Burning, Lesions *Physical Exam - Vital Signs Last Vital Signs Temp Pulse Resp BP Pulse Ox 98.4 F 85 16 133/75 99 06/27/18 18:43 06/27/18 18:43 06/27/18 18:43 06/27/18 18:43 06/27/18 18:43 - Physical Exam General Appearance: Yes: Nourished, Appropriately Dressed. No: Apparent Distress HEENT: positive: DARRYL, TMs Normal, Pharynx Normal, Other (swelling of left eyelid, lower medial aspect, small amount of yellowish drainage) Neck: positive: Supple. negative: Lymphadenopathy (R), Lymphadenopathy (L) Respiratory/Chest: positive: Lungs Clear Cardiovascular: positive: Regular Rhythm, Regular Rate Extremity: positive: Normal Capillary Refill Integumentary: positive: Other (+hyperpigmentation of skin between breast and under breast) Neurologic: positive: liability claims adjuster II-XII NML intact, Fully Oriented, Alert, Normal Mood/ Affect Medical Decision Making - Medical Decision Making 06/27/18 19:14 33 year old female with no significant medical or surgical history present with swelling of left lower eyelid since this am. Plan: rx:erythromycin recommend eye massage and warm compress tinea rx: loprox keep skin dry and clean *DC/Admit/Observation/Transfer Diagnosis at time of Disposition: Tinea Stye Qualifiers: Laterality: left Eyelid: lower Qualified Code(s): H00.015 - Hordeolum externum left lower eyelid - Discharge Dispostion Disposition: HOME Condition at time of disposition: Good Decision to Admit order: No - Prescriptions Prescriptions: Ciclopirox Olamine [Loprox] 90 gm TP BID #30 gm Erythromycin 0.5% Eye Ointment [Erythromycin 0.5% Eye Ointment -] 1 applic OS TID #1 tube - Referrals Referrals: Sheridan Allen MD [Staff Physician] - - Patient Instructions Printed Discharge Instructions: DI for Hordeolum Additional Instructions: Please massage left eye daily and apply warm compress for 20 minutes 3 to 4 times daily Call opthalmologist if symptoms get worse or do not resolve in 1 week - Post Discharge Activity Forms/Work/School Notes: Back to Work
[2018-06-27 19:24] VITALS: BP 128/72; PULSE 79
== END 2018-06-27 19:24 | disposition home or self-care (01) ==
LOC: JERFT 18:34
DX: H00.015 Hordeolum externum left lower eyelid (principal); B35.4 Tinea corporis
CPT/HCPCS: 99281-25

== ENCOUNTER 2023-01-21 14:24 | Emergency (ER) | payer OTHER ==
[2023-01-21 14:29] VITALS: BP 106/61; PULSE 94; RESP 20; TEMP 98.3; BMI 44.9
[2023-01-21] MEDS ORDERED: LIDOCAINE HCL 1%, 10 MG/ML (50 mL VIAL) SQ ONE (16:36)
[2023-01-21] MEDS ORDERED: CEPHALEXIN MONOHYDRATE 500 MG CAPSULE (UD) PO ONE (17:20)
[2023-01-21] MEDS ORDERED: DOXYCYCLINE HYCLATE 100 MG CAPSULE PO ONE ×2 (17:22→17:31)
[2023-01-21] MEDS ORDERED: BACITRACIN ZINC 15 GM TUBE TOPICAL OINTMENT ONE (17:45)
== END 2023-01-21 17:39 | disposition home or self-care (01) ==
LOC: JERFT 14:24
DX: N61.1 Abscess of the breast and nipple (principal)
CPT/HCPCS: 99283-25